=== PATIENT | female | born 2005 | race Caucasian/White ===

== ENCOUNTER 2024-02-21 06:55 | Day surgery (SDC) | payer BC, SELFPAY ==
[2024-02-21] VITALS (18 sets, daily range): BP systolic 105–129; BP diastolic 67–91; PULSE 66–96; RESP 16–18; TEMP 36.1–37; O2SAT 97–100; BMI 21.9
--- OUTSIDE RECORDS SUMMARY | 2024-02-21 07:01 | XMS_ITS | Clinical Summary ---
Author Organization [employer] [facility] Address [place], [place] [address] Care Team Providers Care Monorail Hooker Name Role Phone Lupe Osobrne MD Primary Care Provider [phone] Allergies No known active allergies Medications Medication Sig Dispensed Refills Start Date End Date Status ethinyl estradiol-norelg estrom (ORTHO EVRA) 150-35 mcg/24 hr patchIndications :Dysmenorrhea Apply 1 Patch on dry, clean, hairless skin once weekly. 9 Patch 4 02/01/2024 Active spironolactone (ALDACTONE) 50 mg tabletIndication s:Acne vulgaris Take 1 Tablet (50 mg) by mouth once daily. 100 Tablet 3 02/01/2024 Active clindamycin (CLEOCIN-T) 1 % lotionIndication s:Acne vulgaris Apply topically to affected areas once daily. 60 mL 1 02/01/2024 Active drospirenone-eth inyl estradioL (ERNESTO) 3-0.02 mg tabletIndication s:Dysmenorrhea,A cne vulgaris Take 1 Tablet by mouth once daily. 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 Anorexia nervosa, binge-eati ng purging type, in partial remission, moderate 11/28/2017 Fatigue 05/09/2017 Depression 05/09/2017 PAUL (generalized anxiety disorder) 08/09/2016 Attention deficit hyperactiv ity disorder (ADHD), combined type 01/12/2016 Anxiety 01/12/2016 ODD (oppositional defiant disorder) 10/13/2015 PTSD (post-traumatic stress disorder) 11/01/2012 Sleep concern 06/27/2012 Resolved Problems Problem Noted Date Diagnosed Date Resolved Date Controlled substance agreement signed 11/15/2016 04/09/2021 Overview: Signed 08/09/2016 Dr.Amber Matos psychiatry 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 Mueller at [facility]) 02/01/2024 Refill [facility] [address] [place] [address] Lupe Osborne MD Refill Request (Z[facility]) 02/01/2024 Travel 12/07/2023 1:00 PM CDT Office Visit [facility] [address] [place] [address] Yelena Mueller MD Consult (Biliary colic/gallstones referred by Dr. Osborne) 12/07/2023 Travel from Last 3 Months Immunizations Name Administration Dates Next Due AMB Influenza, IIV4 PF (=>6 mos Flulaval,Fluzone Fluarix)(Flu Clinic Only) 05/05/2018,05/10/2017,05/27/2015 COVID-19 vaccine ([employer] 30mcg/0.3mL) PF, MDV 01/05/2021,12/03/2020 DTaP 05/09/2008,06/24/2004 [id number] (Pediarix) 2003,2003,1 09/01/2002 HIB PRP-OMP (PedvaxHIB) 06/24/2004,03/19,01/23/2004,09/09,2003 HPV 9 (Gardasil 9) 01/30/2015 Hepatitis A (Peds) 05/09/2008,05/25/2005 Hepatitis B (Peds) 2003 Hepatitis B, Unspecified 2003 Human Papilloma Virus Vaccine 08/28/2014, 015 Inactivated Polio Vaccine 05/09/2008 Influenza A (H1N1), Inactiva hayley (Age >=3 Years) 07/23/2009 Influenza A (H1N1), Live Intranasal 07/23/2009 Influenza Virus, Unspecified 05/30/2012 Influenza, IIV3 (Age 6-35 mos) 05/25/2005,2004,06/24/2004 Influenza, IIV3 (Age >=3 years) 03/13/20 14,05/30/2012,05/27/2011,07/23,05/25/2005,09/03/2004,06/24/2004 Influenza, IIV4 04/09/2021, 0,05/24/2016,03/13 Influenza, IIV4 (=>6mos) MDV 05/04/2019 Influenza,LAIV3 Live Intrana michelle (Flumist) 05/09/2008 Influenza,LAIV4 Live Intrana michelle (Flumist) 04/30/2013,05/09/2005 MMR 05/09/2008,09/03/2004 Meningococcal Vaccine (Menveo) 07/13/2019,2014 Pneumococcal conj 7-Valent (Prevnar 7) 1 2003,03/19/2004,2003,07/01 Tdap 07/19/2014 Varicella Vaccine 05/09/2008,09/03/2004 Family History Medical History Relation Name Comments Alcohol/Drug Father Alcohol/Drug Maternal Grandfather Alcohol/Drug Maternal Grandmother Psychiatric illness Maternal Grandmother depression Alcohol/Drug Mother Psychiatric illness Mother depressi on, anxiety, ADHD Alcohol/Drug Paternal Grandfather Alcohol/Drug Paternal Grandmother Asthma No Family History Diabetes No Family History Heart Disease No Family History Relation Name Status Comments Father Alive Maternal Grandfather Maternal Grandmother Mother Alive Paternal Grandfather Paternal Grandmother Social History Tobacco Use Types Packs/Day Years Used Date Smoking Tobacco: Never Smokeless Tobacco: Never Tobacco Cessation:Counseling Given: Yes Comments:no exposure Alcohol Use Standard Drinks/Week Comments Never 0 (1 standard drink = 0.6 oz pur e alcohol) PHQ-2 Answer Date Recorded PHQ-2 TOTAL SCORE 2 10/28/2023 Social Connections Answer Date Recorded Frequency of Communication with Friends and Fami ly 0 10/28/2023 Financial Resource Strain Answer Date R ecorded Difficulty of Paying Living Expenses 3 10/28/2023 Difficulty of Paying Living Expenses Not on file 10/28/2023 Food Insecurity Answer Date Recorded Worried About Running Out of Food in the Last Ye ar 1 10/28/2023 Transportation Needs Answer Date Record ed Lack of Transportation (Medical) 1 10/28/2023 Housing Stability Answer Date Recorded Unable to Pay for Housing in the Last Year 1 10/28/2023 Sex and Gender Information Value Date Recorded Sex Assigned at Not on file Gender Identity Not on file Sexual Orientation Not on file Obstetrics History Para Term AB IAB SAB Ectopic Multiple Livin g Live Births 0 0 0 0 0 0 0 0 0 0 0 Last Filed Vital Signs Vital Sign Reading Time Taken Comments Blood Pressure 114/77 02/01/2024 4:00 PM CDT Pulse 75 02/01/2024 4:00 PM CDT Temperature 37.3 ??C (99.1 ??F) 07/13/2019 2:24 PM CS T Respiratory Rate - - Oxygen Saturation 97% 02/01/2024 4:00 PM CDT Inhaled Oxygen Concentration - - Weight 54.3 kg (119 lb 9.6 oz) 02/01/2024 4:00 P M CDT Height 159.4 cm (5' 2.75) 12/07/2023 12:57 PM C DT Body Mass Index - - Plan of Treatment Upcoming Encounters Date Type Department Care Team (Late st Contact Info) Description 02/21/2024 8:00 AM CDT Office Visit [facility] [address] [place] [address] Yelena Mueller MD [address] [place] [address] Health Maintenance Due Date Last Done Comments HIV for age 15-65 2018 Hepatitis C screening for age 18-79 2021 Well Child Check for age 3-20 04/09/2022 04/09/2021, 07/13/2019, 06/30/2018, Additional history exists COVID-19 vaccine series ( season) 2023 01/05/2021, 12/03/2020 Influenza for age 9-49 03/18/2024 , 05/15/2020, 05/04/2019, Additional history exists Tetanus booster 07/19/2024 07/19/2014 Depression screening for age 12+ 10/27/2024 10/28/2023, 04/09/2021, 04/09/2021, Additional history exists BMI (ht and wt on same day) for age 18+ 12/06/2024 12/07/2023, 10/28/2023 Pneumococcal series for age 6-64 Aged Out 06/24/2004, 03/19/2004, 2003, Additional history exists No longer eligible based on patient's age to complete this topic Tdap Completed 07/19/2014 HPV series for age 9-26 Completed 01/31/20 15, 08/28/2014, 07/19/2014 Meningococcal series for age 11-21 Completed 07/13/2019, 07/15/2015 Care Teams Monorail Hooker Relationship Specialty Start Date End Date Lupe Osborne MD [address] [place] [address] PCP - General Family Practice 10/28/23
[2024-02-21 07:29] LABS: Ur HCG Qualitative* Negative (Negative)
[2024-02-21] MEDS: SODIUM CHLORIDE 0.9 % (FLUSH) 10 ML SYRINGE IVF (07:30)
[2024-02-21] MEDS: LACTATED RINGERS 1000 ML 1,000 ML 100 ML IV ×2 (07:30→11:08)
--- NOTE | 2024-02-21 08:47 | W.PM.H&PU ---
History & Physical Update History & Physical Update H&P Reviewed and patient assessed: No changes noted
[2024-02-21] MEDS: CEFAZOLIN 2 GM INJ IVP (09:11)
[2024-02-21] MEDS: BUPIVACAINE 0.5% 30 ML INJECTION (09:26)
--- NOTE | 2024-02-21 12:05 | W.ANESCHARGE ---
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
--- NOTE | 2024-02-21 12:07 | PM.GSPRC ---
Operative Note Date of procedure: 02/21/24 Pre-op diagnosis: Chronic cholecystitis Post-op diagnosis: Acute and chronic cholecystitis Type of Procedure: Laparoscopic cholecystectomy Indications: Patient is a 18-year-old female who presented to clinic with clinical workup and symptoms consistent with chronic cholecystitis. Different treatment options were reviewed with the patient, please see consultation note for full discussion. Risks and benefits of operative intervention were discussed at length with the patient. Risks included but was not limited to: Bleeding, infection, risk of damage to surrounding structures, possible need for additional procedures, possible need to convert to an open operation and postoperative complications such as pneumonia, pulmonary emboli or MD. All questions and concerns were addressed with the patient agreeing to proceed. Procedure Description: After discussing the risks and benefits of the procedure, the patient signed informed consent.? The operative site was marked and the patient was brought to the operating room and placed on the operating table in supine position.? Care was taken to pad the patient's pressure points.?? The patient was then intubated by anesthesia.?? The operative site was then prepped and draped in the usual sterile fashion.? A time-out was then performed. Entrance to the abdomen was gained via a 5 mm Visiport in the left upper quadrant. The abdomen was insufflated and briefly surveyed for signs of injury. There was none. 11 mm umbilical port was placed as well as 2 working ports along the right costal margin. Patient was then placed in reverse Trendelenburg position with the right side up. The gallbladder fundus was grasped and retracted cephalad. The gallbladder was distended and edematous. The infundibulum was grasped. A combination of hook cautery and blunt dissection was used to carefully dissect out the cystic duct and artery. The artery was 1st dissected out with 2 clips placed proximal and 1 distal. It was transected with scissors. The duct was carefully dissected free. This portion of the exam was made difficult secondary to the nature of the tissues and chronic inflammation. The gallbladder was dissected off the cystic plate to achieve the critical view. Once this was achieved the cystic duct was clipped with 2 clips proximally and 1 clip distally and transected with the scissors. The gallbladder was then taken off of the liver bed. During removal an artery within the gallbladder fossa was bleeding, this was controlled with several 5 mm clips. A small amount of oozing was still present, and controlled with Surgicel to the area for 5 minutes. The Surgicel was then removed and hemostasis appeared excellent. The gallbladder was removed from the abdomen using an Endo-Catch bag. A small amount of bile and stones which had spilled was suctioned from the abdomen. The ports were then removed under direct vision. The umbilical port fascia was closed with 0 Vicryl. The skin was closed with absorbable subcuticular suture. Instrument sponge and needle counts were correct at the end of the case. The patient was then woken and transferred to the PACU in stable condition. Findings: Chronic and acute cholecystitis Anesthesia: [facility] Surgeon: Yeelna Mueller MD Estimated blood loss (mL): 20 Specimen: Gallbladder Condition: stable Disposition: PACU
[2024-02-21] MEDS: METOCLOPRAMIDE HCL 5 MG/ML INJ 10 MG IVP (13:00)
--- NOTE | 2024-03-01 16:29 | PC.NURSE ---
pt called about a lap incision that was red and she felt a lump under it. called DR. Eduardo and she will call pt
== END 2024-02-21 14:56 | disposition home or self-care (01) ==
PROVIDERS: Nurse Anesthetist, Certified Registered; PCP Family Medicine; Visit Provider Surgery
PROC: 0FT44ZZ Resection of Gallbladder, Percutaneous Endoscopic Approach (ICD-10-PCS; CPT 47562; principal; 2024-02-21 08:30)
DX: K80.12 Calculus of gallbladder with acute and chronic cholecystitis without obstruction (principal)
CPT/HCPCS: 47562; 00790; 81025; 88304; 99100; J0665; J0690; J1100; J1630; J1885; J2250; J2405; J2704; J2765; J3010; J3490; J7120

== ENCOUNTER 2025-01-22 18:20 | Outpatient (CLI) | payer BC, SELFPAY | END 2025-01-22 18:21 | disposition home or self-care (01) | LOC: NFLDUCREF 18:21 | PROVIDERS: PCP Family Medicine | DX: J02.9 Acute pharyngitis, unspecified (principal) | CPT/HCPCS: 87070 ==

== ENCOUNTER 2025-01-25 16:37 | Emergency (ER) | payer BC, SELFPAY ==
--- OUTSIDE RECORDS SUMMARY | 2025-01-25 16:38 | XMS_ITS | Clinical Summary ---
Author Organization [employer] [facility] Address [facility] [place] [address] Care Team Providers Care Ship Steward Name Role Phone Lupe Osborne MD Primary Care Provider Allergies No known active allergies Medications mirtazapine 15 mg tabletIndications: Depression, unspecified depression type,PAUL (generalized anxiety disorder) Take 1 Tablet (15 mg) by mouth at bedtime. 30 Tablet 1 5 Active methylphenidate 36 mg extended-release tabletIndications: Attention deficit hyperactivity disorder (ADHD), combined type Take 1 Tablet (36 mg) by mouth once daily. 30 Tablet 5 Active Hospital, Clinic, or Other Facility Administered Medication Ordered Dose Route Frequency Start Date End Date Status levonorgestrel (KYLEENA) 17.5 mcg/24 hr (5 yrs) 19.5 mg intrauterine device (IUD) 1 DeviceIndications:IUD contraception,Encounter for IUD insertion 1 Device IU Q 5 YEARS 06/13/2024 Active Active Problems Problem Noted Date Diagnosed Date Pap smear for cervical cancer screening 06/06/20 Overview (06/06/2024): 05/2024 NIL Plan: Pap due 05/2027 Anorexia nervosa, binge-eating purging type, in remission 11/28/2017 Fatigue 05/09/2017 Depression 05/09/2017 PAUL (generalized anxiety disorder) 08/09/2016 Attention deficit hyperactiv ity disorder (ADHD), combined type 01/12/2016 PTSD (post-traumatic stress disorder) 11/01/2012 Sleep concern 06/27/2012 Resolved Problems Problem Noted Date Diagnosed Date Resolved Date Anorexia nervosa, binge-eati ng purging type, unspecified severity 12/21/2024 12/21/2024 Other specified eating disorder 05/22/2018 01/07/2025 Controlled substance agreement signed 11/15/2016 04/09/2021 Overview (11/15/2016): Signed 08/09/2016 Dr.Amber Matos psychiatry Anxiety 01/12/2016 01/07/2025 ODD (oppositional defiant disorder) 10/13/2015 01/07/2025 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 [address] [place] [address] Poonam Sullivan NP Mental Health Intake (Medication consult, having trouble focusing, sleep, Anxiety very high) 01/06/2025 Travel 01/01/[address] [facility] [address] [place] [address] Poonam Sullivan NP Pre-Visit Intake 12/24/[address] [address] [place] [address] Poonam Sullivan NP Appointment 12/21/2024 1:05 PM CDT Office Visit [facility] [address] [place] [address] Lupe Osborne MD Physical (Anxiety and sleeping concerns/Patient would also like to talk about focusing concerns) 12/21/2024 Travel from Last 3 Months Immunizations Immunization Administration Dates Next Due AMB Influenza, IIV4 PF (=>6 mos Flulaval,Fluzone Fluarix)(Flu Clinic Only) 05/05/2018,05/10/2017,05/27/2015 COVID-19 VACCINE SPIKEVAX (M ODERNA 50MCG/0.5ML) 12YO+ PFS 12/21/2024 COVID-19 vaccine (Pfizer-Bio NTech 30mcg/0.3mL) PF, MDV 01/05/2021,12/03/2020 DTaP 05/09/2008,06/24/2004 [id number] (Pediarix) 2003,2003,1 09/01/2002 HIB PRP-OMP (PedvaxHIB) 06/24/2004,03/19,01/23/2004,09/09,2003 [...] (Age >=3 years) 03/13/20 14,05/30/2012,05/27/2011,07/23,05/25/2005,09/03/2004,06/24/2004 Influenza, IIV4 04/09/2021,,05/24/2016,03/13 Influenza, IIV4 (=>6mos) MDV 05/04/2019 Influenza,LAIV3 Live Intrana michelle (Flumist) 05/09/2008 Influenza,LAIV4 Live Intrana michelle (Flumist) 04/30/2013,05/09/2005 MENINGOCOCCAL VACCINE 2 VIAL 2MO-55YO (MENVEO) 07/13/2019,07/15/2015 MMR 05/09/2008,09/03/2004 Pneumococcal conj 7-Valent (Prevnar 7) 1 2003,03/19/2004,2003,07/01 Tdap 12/21/2024,07/19/2014 Varicella Vaccine 05/09/2008,09/03/2004 Family History Medical History [...] Answer Date Recorded PHQ-2 TOTAL SCORE 2 01/06/2025 Social Connections Answer Date Recorded Do you often feel lonely or isolated from those around you? 0 12/21/2024 Financial Resource Strain Answer Date R ecorded Difficulty of Paying Living Expenses 3 12/21/2024 Difficulty of Paying Living Expenses Not on file 12/21/2024 Food Insecurity Answer Date Recorded Do you worry your food will run out before you are able to buy more? 1 12/21/2024 Transportation Needs Answer Date Record ed Does lack of transportation keep you from medica l appointments? 1 12/21/2024 Does lack of transportation keep you from work, meetings or getting things that you need? 1 12/21/2024 Housing Stability Answer Date Recorded What is your housing situation today? 1 12/21/2024 Utilities Answer Date Recorded Do you have trouble paying f or utilities (for example, heat, electricity, water, phone)? 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 Gender Identity Not on file Sexual Orientation Not on file Obstetrics History Para Term AB IAB SAB Ectopic Multiple Livin g Live Births 0 0 0 0 0 0 0 0 0 0 0 Last Filed Vital Signs Vital Sign Reading Time Taken Comments Blood Pressure 111/79 12/21/2024 1:00 PM CDT Pulse 91 12/21/2024 1:00 PM CDT Temperature 37.3 C (99.1 F) 07/13/2019 2:24 PM ROTARY ENVELOPE MACHINE OPERATOR Respiratory Rate - - Oxygen Saturation 97% 12/21/2024 1:00 PM CDT Inhaled Oxygen Concentration - - Weight 57.2 kg (126 lb 3.2 oz) 12/21/2024 1:00 P M CDT Height 160.2 cm (5' 3.07) 12/21/2024 1:00 PM CD T Body Mass Index 22.31 12/21/2024 1:00 PM CDT Plan of Treatment Upcoming Encounters Date Type Department Care Team (Late st Contact Info) Description 02/06/2025 2:15 PM CDT Office Visit [facility] [address] [place] [address] Poonam Sullivan NP [address] [place] [address] Health Maintenance Due Date Last Done Comments HIV for age 15-65 2018 Hepatitis C screening for age 18-79 2021 Influenza Vaccine (#1) 2025 , 05/15/2020, 05/04/2019, Additional history exists Chlamydia for age 16-24 05/24/2025 05/24/2024 BMI (ht and wt on same day) for age 18+ 12/21/2025 12/21/2024, 12/07/2023, 10/28/2023 Depression screening for age 12+ 01/07/2026 01/07/2025, 01/06/2025, 12/21/2024, Additional history exists Pap test for age 21-65 05/31/2027 05/31/2024 Tetanus booster 12/21/2034 12/21/2024, 07/19/2014 Hepatitis B series for 19+ Completed 11/18, 2003, 2003, Additional history exists Pneumococcal series for age 6-49 Aged Out 06/24/2004, 03/19/2004, 2003, Additional history exists No longer eligible based on patient's age to complete this topic HPV series for age 9-26 Completed 01/31/20 15, 08/28/2014, 07/19/2014 Meningococcal series for age 11-21 Completed 07/13/2019, 07/15/2015 COVID-19 vaccine series Completed 12/22/19, 01/05/2021, 12/03/2020 Procedures Procedure Name Priority Date/Time Associated Diagnosis Comments COMPLIANCE DRUG ANALYSIS Routine 01/07/2025 9:59 AM CDT Attention deficit hyperactivity disorder (ADHD), combined type TELEVISION INSPECTOR THIN PREP PAP - AGES 21-24 ([employer]) Routine 05/31/2024 3:46 PM ROTARY ENVELOPE MACHINE OPERATOR Screening for cervical cancer GC CHLAMYDIA TRACH PROBE Routine 05/24/2024 2:41 PM ROTARY ENVELOPE MACHINE OPERATOR Encounter for counseling regarding contraception from Last 3 Months or Most Recently Relevant to Health Maintenance Results * COMPLIANCE DRUG ANALYSIS (01/07/2025 9:59 AM CDT) 6-MONOACETYL MORPHINE NEG NEG ng/mL 01/14/2025 2:10 PM CDT [facility] AMPHETAMINE URINE NEG <=500 ng/mL 01/14/2025 2:10 PM CDT [facility] BARBITURATE URINE NEG <=200 ng/mL 01/14/2025 2:10 PM CDT [facility] BENZODIAZEPINE URINE NEG <=100 ng/mL 01/14/2025 2:10 PM CDT [facility] BUPRENORPHRINE URINE NEG <=5 ng/mL 12/18 2:10 PM CDT [facility] COCAINE METAB URINE NEG <=300 ng/mL 01/14/2025 2:10 PM CDT [facility] ETHYLGLUCURONIDE URINE NEG <=250 ng/mL 01/14/2025 2:10 PM CDT [facility] FENTANYL URINE NEG <=5 ng/mL 01/14/2025 2:10 PM CDT [facility] METHADONE URINE NEG <=300 ng/mL 01/14/2025 2:10 PM CDT [facility] OPIATES URINE NEG <=300 ng/mL 01/14/2025 2:10 PM CDT [facility] OXYCODONE URINE NEG <=100 ng/mL 01/14/2025 2:10 PM CDT [facility] PROPOXYPHENE URINE NEG <=300 ng/mL 01/14/2025 2:10 PM CDT [facility] THC 50 URINE NEG <=50 ng/mL 01/14/2025 2:10 PM CDT [facility] TRAMADOL NEG <=200 ng/mL 01/14/2025 2:10 PM T [facility] PH URINE 5.2 5.0 - 7.0 01/14/2025 2:10 PM T [facility] CREAT UR 201 >=20 mg/dL 01/14/2025 2:10 PM [facility] MASS SPECTROMETRY URINE See Below 01/14/2025 2:10 PM T [facility] Comment:Diphenhydramine and Ephedrine/Pseudoephedrine present. Urine URINE SPECIMEN / Unknown Non-Blood / Unknown 01/07/2025 9:59 AM CDT 01/07/2025 9:59 AM T [facility] - 01/14/2025 2:10 PM CDT No current outpatient medications on file. Current Facility-Administered Medications: levonorgestrel (KYLEENA) 17.5 mcg/24 hr (5 yrs) 19.5 mg intrauterine device (IUD) 1 Device, 1 Device, Intrauterine, q 5 years As of 01/07/2025 Release to patient->Immediate us Poonam Sullivan NP URINE Final Resul t [facility] [address] [place] [address], [place] * TELEVISION INSPECTOR THIN PREP PAP - AGES 21-24 ([employer]) [[id number]] (05/31/2024 3:46 PM ROTARY ENVELOPE MACHINE OPERATOR) CLINICAL INFORMATION [facility] Comment:SCREENING PAP LMP [facility] Comment:05/09/[address] [facility] [employer] Comment:N/A PREV. BX [facility] Comment:N/A SOURCE TELEVISION INSPECTOR [facility] [employer] [facility] Comment:Cervix STATEMENT OF ADEQUACY [facility] [employer] Comment: Satisfactory for evaluation. Endocervical/transformation zone component present. INTERPRETATION/RESUL T [facility] Comment: Cytology Results: Negative for intraepithelial lesion or malignancy. COMMENT [facility] Comment: This Pap test has been evaluated with computer assisted technology. AIRCONDITIONING ENGINEER [facility] Comment: SRR, CT(ASCP) CT Screening location: [address] [address] THINPREP TIS PAP ALWAYS MESSAGE [facility] Comment: EXPLANATORY NOTE: The Pap is a screening test for cervical cancer. It is not a diagnostic test and is subject to false negative and false positive results. It is most reliable when a satisfactory sample, regularly obtained, is submitted with relevant clinical findings and history, and when the Pap result is evaluated along with historic and current clinical information. Other (Cervical) 05/31/2024 3:46 PM ROTARY ENVELOPE MACHINE OPERATOR 06/01/2024 8:37 AM ROTARY ENVELOPE MACHINE OPERATOR Lupe Osborne MD PATHOLOGY/CYTOLOGY Final Re sult [facility] [employer] [address] [address], [facility] [address] * GC CHLAMYDIA TRACH PROBE (05/24/2024 2:41 PM ROTARY ENVELOPE MACHINE OPERATOR) CHLAMYDIA PROBE Negative 2:35 AM ROTARY ENVELOPE MACHINE OPERATOR [facility] N GONORRHOEAE PROBE Negative 05/25/2024 2:35 AM ROTARY ENVELOPE MACHINE OPERATOR [facility] Other URINE SPECIMEN / Unknown Non-Blood / Unknown 05/24/2024 2:41 PM ROTARY ENVELOPE MACHINE OPERATOR 05/24/2024 2:41 PM ROTARY ENVELOPE MACHINE OPERATOR us Lupe Osborne MD MICROBIOLOGY Final Resul t [facility] [address] [place] [address], [place] from Last 3 Months or Most Recently Relevant to Health Maintenance Insurance [employer] [place] [facility] [place] [place] Care Teams Ship Steward Relationship Specialty Start Date End Date Lupe Osborne MD [address] [place] [address] PCP - General Family Practice 10/28/23
[2025-01-25 16:48] VITALS: BP 117/79; PULSE 95; RESP 18; TEMP 37; O2SAT 98; BMI 23.0
--- NOTE | 2025-01-25 19:07 | ED_ITS ---
HPI - General Adult General Date Seen: 01/25/25 Chief complaint: Sore Throat Stated complaint: sore throat Time Seen by Provider: 01/25/25 16:52 Source: patient Mode of arrival: ambulatory Limitations: no limitations History of Present Illness HPI narrative: Patient is a 19-year-old female who presents here with a history of a sore throat she has had for a month on and off, she was in urgent care yesterday had a negative strep swab and a negative Monospot, she presents here she says it is sore on her left side her right side does not give her any problems, she is able to swallow, she has not take any Tylenol or any ibuprofen, no fevers chills or sweats, she is eating and drinking otherwise normally she does have a past history of anorexia. Related Data Home Medications ?Medication ?Instructions ?Recorded ?Confirmed levonorgestrel 17.5 mcg/24 hr (up 1 device intrauterin e ONCE 01/05/25 01/05/25 to 5 yrs) 19.5mg intrauterine device (Kyleena) methylphenidate HCl 18 mg 18 mg PO QAM 01/22/25 tablet,extended release 24 hr (Concerta) Previous Rx's ?Medication ?Instructions ?Recorded omeprazole 20 mg capsule,delayed 20 mg PO QDAY 14 days #14 caps 01/22/25 release Allergies Allergy/AdvReac Type Severity Reaction Status Date / Time No Known Drug Allergies Allergy Verified 01/22/25 18:08 Review of Systems Status of ROS: Reports: 10 or more systems reviewed and unremarkable except as noted in History and below [facility] Medical History Anorexia nervosa, binge-eating purging type, in partial remission, moderate ?F50.02 - Anorexia nervosa, binge eating/purging type (ICD-10) Depression ?F32.A - Depression, unspecified (ICD-10) Anxiety ?F41.9 - Anxiety disorder, unspecified (ICD-10) ADHD (attention deficit hyperactivity disorder) ?F90.9 - Attention-deficit hyperactivity disorder, unspecified type (ICD-10) Oppositional defiant disorder ?F91.3 - Oppositional defiant disorder (ICD-10) PTSD (post-traumatic stress disorder) ?F43.10 - Post-traumatic stress disorder, unspecified (ICD-10) Social History Smoking Status: Never smoker Do you use any of these nicotine containing products: None How often do you have a drink containing alcohol: never How often do you have six or more drinks on one occasion: Never AUDIT-C Alcohol total score: 0 Non-prescribed substance use: denies use Caffeine: No Are you using contraception or practicing any form of control: No Exam Narrative: Exam Narrative: On examination in room 4 she is in no apparent distress she is pleasant alert, her mouth opening is normal with absence of trismus, she has a little bit prominent left-sided tonsillar tissue, with really no redness, and she has a tonsillith on the left side. Floor of her mouth is quiet there is no lymphadenopathy, her neck is supple full range of motion. I did take a picture of it to show her. Const: Vital Signs, click to edit/add: Vital Signs - 24 hr 01/25/25 16:48 Temperature 98.6 F Pulse Rate [Pulse Oximeter] 95 Respiratory Rate 18 Blood Pressure [Ri ght Upper Arm] 117/79 Pulse Oximetry 98 Oxygen Delivery Me thod Room Air Course Vital Signs Vital signs: Initial Vital Signs Temperature 98.6 F 01/25/25 16:48 Temperature Source Temporal Artery Scan 01/25/25 16:48 Pulse Rate 95 01/25/25 16:48 Pulse Rhythm Regular 01/25/25 16:48 Respiratory Rate 18 01/25/25 16:48 Blood Pressure 117/79 01/25/25 16:48 Blood Pressure Mean 91 01/25/25 16:48 Blood Pressure Position Sitting 01/25/25 16:48 Pulse Oximetry 98 01/25/25 16:48 Oxygen Delivery Method Room Air 01/25/25 16:48 Vital Signs Temperature 98.6 F 01/25/25 16:48 Pulse Rate 95 01/25/25 16:48 Respiratory Rate 18 01/25/25 16:48 Blood Pressure 117/79 01/25/25 16:48 Pulse Oximetry 98 01/25/25 16:48 Oxygen Delivery Method Room Air 01/25/25 16:48 Temperature 98.6 F 01/25/25 16:48 Pulse Rate 95 01/25/25 16:48 Respiratory Rate 18 01/25/25 16:48 Blood Pressure 117/79 01/25/25 16:48 Pulse Oximetry 98 01/25/25 16:48 Oxygen Delivery Method Room Air 01/25/25 16:48 Medical Decision Making MDM Narrative Medical decision making narrative: I discussed with her that this is not strep throat this is not mono this is not viral this likely just a little bit excessive lymphoid tissue for whatever reason, and she had a little bit of food stuck in there. I would suggest gargling that is listed fast treatment for this I have also for people using water picks she should not use her toothbrush or any other utensils to take this out. Follow-up with ENT if ongoing concerns. She is very comfortable this plan we will discharge her at this point Discharge Plan Discharge Clinical Impression: Tonsillolith Pharyngitis Qualifiers: Pharyngitis/tonsillitis etiology: unspecified etiology Qualified Code(s): J02.9 - Acute pharyngitis, unspecified Patient Disposition: Home, Self-Care Condition: Stable Additional Instructions: As I discussed with the a, this is a small bit of food caught in your left tonsil, there is no indication to do anything other than gargling, I have heard a people using like a water pick, sometimes to get this out but please do not use a toothbrush or anything like that aggressive cause it will bleed. This usually resolves after a couple days. Ibuprofen is very helpful, if the swelling comes across and impinges on your uvula, that bag shaped structure in a back if throat, then you need to come back and be seen. This is very common. Ibuprofen 600 mg 3 times a day is very helpful for the pain. Activity Level: Light activity Prescriptions: No Action methylphenidate HCl [Concerta] 18 mg tablet extended release 24hr 18 mg PO QAM omeprazole 20 mg capsule,delayed release(DR/EC) 20 mg PO QDAY 14 Days Qty: 14 0RF Kyleena 17.5 mcg/24 hr (5 yrs) 19.5 mg intrauterine device 1 device intrauterine ONCE Rx Instructions: as a single dose Follow Up/Referrals: Lupe Osborne MD [Primary Care Provider, Obstetrics] [facility]
== END 2025-01-25 17:25 | disposition home or self-care (01) ==
PROVIDERS: Emergency Provider Family Medicine; PCP Family Medicine
DX: J35.8 Other chronic diseases of tonsils and adenoids (principal)
CPT/HCPCS: 99283